=== PATIENT | female | born 1960 | race Caucasian/White ===

== ENCOUNTER 2019-02-04 18:03 | Emergency (ER) | payer OTHER ==
--- NOTE | 2019-02-04 18:10 | PDOC ---
Rapid Medical Evaluation Time Seen by Provider: 02/04/19 18:09 Medical Evaluation: 02/04/19 18:09 I have performed a brief in-person evaluation of this patient. The patient presents with a chief complaint of: Right knee swelling 1 week points to R knee Pertinent physical exam findings: no gross deficits I have ordered the following: nothing The patient will proceed to the ED for further evaluation. Discharge Disposition - Diagnosis Right knee pain - Referrals - Patient Instructions - Post Discharge Activity
[2019-02-04 18:14] VITALS: BMI 27.4
[2019-02-04] MEDS ORDERED: amLODIPine BESYLATE 5 MG TABLET (FP) PO ONE (18:16)
[2019-02-04] MEDS ORDERED: amLODIPine BESYLATE 5 MG TABLET (FP) ONE (18:39)
--- NOTE | 2019-02-04 19:28 | PDOC ---
History of Present Illness - General Chief Complaint: Pain, Acute Stated Complaint: KNEE PAIN Time Seen by Provider: 02/04/19 18:09 History Source: Patient Exam Limitations: No Limitations - History of Present Illness Initial Comments: 02/04/19 19:30 HISTORY OF PRESENT ILLNESS: 58-year-old woman past medical history of hypertension presents emergency department for evaluation of right knee pain which is been present for the past week. Patient reports one week ago she was walking down the stairs when she reached the bottom step and landed awkwardly on her right leg. She reports feeling a "pop" in her right knee causing her to lose her balance falling forwards for which she was able to recover before hitting the ground. Patient has been working all week and has not had the time to come for evaluation. No recent travel or sick contacts. PAST MEDICAL HISTORY: HTN SURGICAL HISTORY: Denies ALLERGIES: No known drug allergies REVIEW OF SYSTEMS General/Constitutional: Denies fever or chills. Denies weakness, weight change. HEENT: Denies change in vision. Denies ear pain or discharge. Denies sore throat. Cardiovascular: Denies chest pain or shortness of breath. Respiratory: Denies cough, wheezing, or hemoptysis. Gastrointestinal: Denies nausea, vomiting, diarrhea or constipation. Denies rectal bleeding. Genitourinary: Denies dysuria, frequency, or change in urination. Musculoskeletal: see HPI Skin and breasts: Denies rash or easy bruising. Neurologic: Denies headache, vertigo, loss of consciousness, or loss of sensation. Psychiatric: Denies depression or anxiety. Endocrine: Denies increased thirst. Denies abnormal weight change. Hematologic/Lymphatic: Denies anemia, easy bleeding, or history of blood clots. Allergic/Immunologic: Denies hives or skin allergy. Denies latex allergy. PHYSICAL EXAM General Appearance: Well-appearing, appropriately dressed. No apparent distress , no intoxication. HEENT: EOMI, PERRLA, normal ENT inspection, normal voice, TMs normal, pharynx normal. No conjunctival pallor. No photophobia, scleral icterus. Neck: Supple. Trachea midline. No tenderness, rigidity, carotid bruit, stridor , lymphadenopathy, or thyromegaly. Respiratory/Chest: Lungs CTAB. No shortness of breath, chest tenderness, respiratory distress, accessory muscle use. No crackles, rales, rhonchi, stridor , wheezing, dullness Cardiovascular: RRR. S1, S2. No JVD, murmur, bradycardia, tachycardia. Vascular Pulses: Dorsalis-Pedis (R): 2+, Dorsalis-Pedis (L): 2+ Musculoskeletal/Extremities: Swelling present to the medial aspect of the right knee. No bony tenderness. Patella is mobile. Full active range of motion noted. Unable to elicit any joint instability. Integumentary: Appropriate color, dry, warm. 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 Fully oriented, alert. Appropriate mood/affect. Motor strength 5/5. No appreciable EOM palsy, facial droop or sensory deficit. Past History - Past Medical History Allergies/Adverse Reactions: Allergies Allergy/AdvReac Type Severity Reaction Status Date / Time No Known Allergies Allergy Verified 02/04/19 18:10 Home Medications: Ambulatory Orders Amlodipine Besylate [Norvasc -] 5 mg PO DAILY 02/04/19 COPD: No CHF: No DVT: No HTN: Yes - Immunization History Immunization Up to Date: Yes - Suicide/Smoking/Psychosocial Hx Smoking History: Never smoked Hx Alcohol Use: No Drug/Substance Use Hx: No *Physical Exam - Vital Signs Last Vital Signs Temp Pulse Resp BP Pulse Ox 98.2 F 58 L 17 195/92 H 98 02/04/19 18:10 02/04/19 18:10 02/04/19 18:10 02/04/19 19:08 02/04/19 18:10 ED Treatment Course - Medications Given in the ED: ED Medications Discontinued Medications Generic Name Dose Route Start Last Admin Trade Name Freq PRN Reason Stop Dose Admin Amlodipine Besylate 5 mg 02/04/19 18:16 02/04/19 19:08 Norvasc - PO 02/04/19 18:17 5 mg ONCE ONE Administration Medical Decision Making - Medical Decision Making 02/04/19 19:46 A/P: 58-year-old woman with atraumatic right knee pain for one week Patient noted to be hypertensive in triage. Norvasc 5 mg orally given in triage. X-rays of right knee Naprosyn 500 mg orally Reevaluate blood pressure Reassess likely discharge 02/04/19 20:33 X-ray of the right knee as read by me: No acute fractures or dislocations present. Multiple osteophytes present. Repeat blood pressure remains elevated at 214/86. Labetalol 100 mg orally given. Patient continues to be asymptomatic. Reassess 02/04/19 21:29 Repeat blood pressure is 175/78. I will discharge the patient home follow-up with orthopedics on her regular doctor. I discussed the physical exam findings, ancillary test results and final diagnoses with the patient. I answered all of the patient's questions. The patient was satisfied with the care received and felt comfortable with the discharge plan and treatment plan. The patient will call their primary care physician within 24 hours to arrange follow-up and will return to the Emergency Department with any new, persistent or worsening symptoms. *DC/Admit/Observation/Transfer Diagnosis at time of Disposition: Right knee pain Qualifiers: Chronicity: acute Qualified Code(s): M25.561 - Pain in right knee - Discharge Dispostion Disposition: HOME Condition at time of disposition: Stable Decision to Admit order: No - Referrals Referrals: Todd Pollard MD [Primary Care Provider] - Braulio Mcpherson MD [Staff Physician] - - Patient Instructions Additional Instructions: Rest. Take Tylenol or Aleve as needed for pain. Follow manufacturers instructions for appropriate dosage. Apply ice for 20 minutes and removed for at least 20 minutes before reapplying the ice. Whenever possible keep your foot elevated to decrease swelling. You've been given the number for an orthopedist. If symptoms do not resolve within the next 7 days call the orthopedist for further evaluation. Return to emergency department for discoloration of the foot, numbness or tingling to the foot, worsening pain, or any other concerns. Thank you very much for choosing us to provide your emergent healthcare needs. [place]. [place] Tylenol o Aleve segn sea necesario para el dolor. Siga las instrucciones del fabricante para la dosis apropiada. Aplique hielo shahram 20 minutos y retrelo shahram al menos 20 minutos antes de volver a aplicar el hielo. Siempre que sea posible mantenga del toro pie elevado para disminuir la hinchazn. Te keys dado el nmero de un ortopedista. Si los sntomas no se resuelven en los prximos 7 acuna, llame al ortopedista para tabitha evaluacin adicional. Regrese al departamento de emergencias para la decoloracin del pie, entumecimiento u hormigueo en el pie, empeoramiento del dolor o cualquier otra inquietud. Muchas reji por elegirnos para satisfacer aguila necesidades de atencin mdica de emergencia. - Post Discharge Activity Forms/Work/School Notes: Back to Work
[2019-02-04] MEDS ORDERED: NAPROXEN 500 MG TABLET (FP) PO ONE (19:29)
[2019-02-04] MEDS ORDERED: NAPROXEN 500 MG TABLET (FP) ONE (19:39)
[2019-02-04] MEDS ORDERED: LABETALOL HCL 100 MG TABLET (FP) PO ONE (20:12)
[2019-02-04] MEDS ORDERED: LABETALOL HCL 100 MG TABLET (FP) ONE (20:15)
[2019-02-04 22:20] VITALS: BP 175/78; PULSE 62; TEMP 98
== END 2019-02-04 22:38 | disposition home or self-care (01) ==
LOC: JER 18:03
DX: W18.39XA Other fall on same level, initial encounter (principal); Y93.89 Activity, other specified; Y92.89 Other specified places as the place of occurrence of the external cause; I10 Essential (primary) hypertension
CPT/HCPCS: 73560-TC-RT-FY; 99283-25